=== PATIENT | male | born 1950 | race Caucasian/White ===

== ENCOUNTER → 2017-09-15 | Outpatient (CLI) | payer OTHER | LOC: FIMAGING 07:51 | PROVIDERS: ATTEND Nurse Practitioner | DX: N13.30 Unspecified hydronephrosis (principal); B19.20 Unspecified viral hepatitis C without hepatic coma ==

== ENCOUNTER → 2017-11-20 | Outpatient (CLI) | payer OTHER, MEDICAID ==
[~2017-11-20] MED LIST: IOPAMIDOL (ISOVUE-300) 150 ML BTL ONE
== END ==
LOC: FIMAGING 07:32
PROVIDERS: ATTEND Nurse Practitioner
DX: N13.2 Hydronephrosis with renal and ureteral calculous obstruction (principal); N20.0 Calculus of kidney; K74.60 Unspecified cirrhosis of liver; K76.89 Other specified diseases of liver
CPT/HCPCS: 74178; Q9967; 82565-PO

== ENCOUNTER 2018-02-15 05:27 | Inpatient (IN) | payer OTHER, MEDICAID ==
--- NOTE | 2018-02-14 15:59 | GHP ---
DATE OF ADMISSION: 02/15/2018 ADMITTING DIAGNOSIS: Right large ureteral calculus. HISTORY OF PRESENT ILLNESS: This is a 68-year-old gentleman who has had a large right ureteral calcu kareem noted on CAT scan with hydronephrosis, and the stone is 2.2 cm in longitudinal length. At the pr esent time, we discussed the various options of therapy and recommended that he undergo robotic urete rolithotomy, and indications, complications, and risks were discussed. PAST MEDICAL HISTORY: He has had ureterolithiasis, hepatitis C, emphysema, alcoholism. PAST SURGICAL HISTORY: No surgeries identified. MEDICATIONS: Atrovent, ProAir. ALLERGIES: None. FAMILY HISTORY: Positive for kidney stones. SOCIAL HISTORY: Rare alcohol consumption. Currently smokes daily. REVIEW OF SYSTEMS: Negative cardiac, respiratory, GI, and endocrine. PHYSICAL EXAMINATION: VITAL SIGNS: Stable. CHEST: Clear. HEART: Regular rate and rhythm. ABDOM EN: Normal. No organomegaly, rebound, or guarding. LOWER EXTREMITIES: Normal. ASSESSMENT AND PLAN: At the present time, he is admitted for the right robotic-assisted ureterolitho steven. We have asked that he have a cardiac clearance, and, by Dr. aPtel as of 12/22/2017, it says h enoc has no cardiac contraindication proceeding with necessary noncardiac surgery. So plans are a right -sided ureterolithotomy, robotically assisted. /[id number]/MODL
[2018-02-15] MEDS ORDERED: ceFAZolin 2 GM/DEXTROSE 100 ML IV ONE (05:41)
[2018-02-15] MEDS ORDERED: LR 1,000 ML IV ONE (05:42)
[2018-02-15] MEDS ORDERED: BUPIVACAINE 0.5% 30 ML SDV ONE (06:44)
[2018-02-15] MEDS ORDERED: THROMBIN (BOVINE) 5,000 UNIT VIAL TP ONE (06:44)
[2018-02-15] MEDS ORDERED: SURGIFLO MATRIX KIT WITH THROMBIN 8 ML TP ONE (06:44)
--- NOTE | 2018-02-15 07:07 | PDHPUP ---
History & Physical Update H&P update statement: This history and physical update is based on an assessment of the patient which was completed after admission or registration (within 24 hours), but prior to the surgery/procedure. H&P update: H&P reviewed & patient examined, no change in patient's condition since H&P completed
[2018-02-15] MEDS ORDERED: MIDAZOLAM 2 MG/2 ML VIAL IVP ONE (07:11)
--- NOTE | 2018-02-15 07:11 | PDANEPAE ---
ANE Past Medical History - Cardiovascular History Hx Hypertension: Yes Hx Arrhythmias: No Hx Chest Pain: No Hx Coronary Artery / Peripheral Vascular Disease: Yes Hx CHF / Valvular Disease: No Hx Palpitations: No Cardiovascular History Comment: borderline HTN - no current tx per cardiology - Pulmonary History Hx COPD: Yes Hx Asthma/Reactive Airway Disease: No Hx Recent Upper Respiratory Infection: No Hx Oxygen in Use at Home: No Hx Sleep Apnea: No Sleep Apnea Screening Result - Last Documented: Negative Pulmonary History Comment: emphysema - Neurologic History Hx Cerebrovascular Accident: No Hx Seizures: No Hx Dementia: No - Endocrine History Hx Diabetes: No - Renal History Hx Renal Disorders: Yes Renal History Comment: renal stones - Liver History Hx Hepatic Disorders: Yes Hepatic History Comment: hepatitis C, cirrhosis - Neurological & Psychiatric Hx Hx Neurological and Psychiatric Disorders: No - Cancer History Hx Cancer: No Cancer History Comment: has had spots on lungs in the past but no diagnosis - Congenital Disorder History Hx Congenital Disorders: No - GI History Hx Gastrointestinal Disorders: No - Other Health History Other Health History: partial, top. hx of alcoholism, sobor since 2013 - Chronic Pain History Chronic Pain: No - Surgical History Prior Surgeries: none ANE Review of Systems Review of Systems: - Exercise capacity METS (RN): 4 METS ANE Patient History - Allergies Allergies/Adverse Reactions: No Known Allergies Allergy (Unverified 01/25/18 10:31) - Home Medications Home Medications: Albuterol [Proventil Inhaler HFA (*)] 1 - 2 puffs IH DAILY PRN 01/25/18 [Last Taken Unknown] Herbals/Supplements -Info Only 1 ea PO DAILY 01/25/18 [Last Taken 02/08/18] Ipratropium [Atrovent Hfa (*)] 2 puffs IH BID 01/25/18 [Last Taken 02/15/18 03: 30] Multivitamins [Multivitamin (*)] 1 each PO DAILY 01/25/18 [Last Taken 02/08/18] - NPO status NPO Since - Liquids (Date): 02/14/18 NPO Since - Liquids (Time): 22:00 NPO Since - Solids (Date): 02/14/18 NPO Since - Solids (Time): 22:00 - Smoking Hx Smoking Status: Current every day smoker - Family Anes Hx Family Hx Anesthesia Complications: none ANE Labs/Vital Signs - Vital Signs Blood Pressure: 157/75 Heart Rate: 56 Respiratory Rate: 16 O2 Sat (%): 95 Height: 172.72 cm Weight: 60.781 kg ANE Physical Exam - Airway Neck exam: FROM Mallampati Score: Class 1 Mouth exam: dentures - Pulmonary Pulmonary: no respiratory distress - Cardiovascular Cardiovascular: regular rate and rhythym - ASA Status ASA Status: III ANE Anesthesia Plan Anesthesia Plan: general endotracheal anesthesia
[2018-02-15] MEDS ORDERED: MIDAZOLAM 2 MG/2 ML VIAL ONE (07:12)
[2018-02-15] MEDS ORDERED: PROPOFOL 200 MG/20 ML VIAL ONE (07:16)
[2018-02-15] MEDS ORDERED: DEXAMETHASONE 4 MG/ML VIAL ONE (07:16)
[2018-02-15] MEDS ORDERED: ONDANSETRON 4 MG/2 ML VIAL ONE (07:16)
[2018-02-15] MEDS ORDERED: ROCURONIUM 100 MG/10 ML VIAL ONE (07:16)
[2018-02-15] MEDS ORDERED: fentaNYL 250 MCG/5 ML INJ ONE (07:16)
[2018-02-15] MEDS ORDERED: RANITIDINE 50 MG/2 ML VIAL ONE (07:16)
[2018-02-15] MEDS ORDERED: KETOROLAC 30 MG/1 ML SDV ONE (07:16)
[2018-02-15] MEDS ORDERED: SUGAMMADEX SODIUM 200 MG/2 ML VIAL IVP ONE (07:16)
[2018-02-15] MEDS ORDERED: LIDOCAINE 2% 100 MG/5 ML SYR ONE (07:16)
[2018-02-15] MEDS ORDERED: PHENYLEPHRINE HCL 100 MCG/ML SYR ONE (09:03)
[2018-02-15] MEDS ORDERED: ONDANSETRON DISINTEGRATING 4 MG TAB PO PRN (09:26)
[2018-02-15] MEDS ORDERED: HYDROmorphONE/DILAUDID 6 MG/30 ML PCA IV PRN (09:26)
[2018-02-15] MEDS ORDERED: NALOXONE HCL 0.4 MG/ML INJ IVP PRN (09:26)
--- NOTE | 2018-02-15 09:32 | POSTOPPROG ---
Post Op Note Date of Operation: 02/15/18 (dictated) Surgeon: Cipriano Santillan Asbestos Siding Installer: Milton Anesthesiologist: Gualberto Anesthesia: GET(General Endotracheal) Pre-op Diagnosis: rt ureterolithiasis Procedure: RA ureterolithotomy / stent Inf/Abcess present in the surg proc area at time of surgery?: No EBL: Minimal Drains: Prem Chaney, Other (ureteral stent) Specimen(s): stone
[2018-02-15] MEDS ORDERED: MEPERIDINE 25 MG/0.5 ML AMP IVP PRN (09:34)
[2018-02-15] MEDS ORDERED: PROMETHAZINE HCL 25 MG/ML INJ IVP PRN (09:34)
[2018-02-15] MEDS ORDERED: DIAZEPAM 5 MG/ML 1 ML SYR IVP PRN (09:34)
[2018-02-15] MEDS ORDERED: fentaNYL 100 MCG/2 ML INJ IVP PRN (09:34)
[2018-02-15] MEDS ORDERED: LR 500 ML IV PRN (09:34)
[2018-02-15] MEDS ORDERED: ALBUTEROL 3 ML DEYVIAL IH PRN (09:34)
--- NOTE | 2018-02-15 09:42 | GOP ---
DATE OF OPERATION: 02/15/2018 SURGEON: Cipriano Santillan MD EVENTS AND PROMOTIONS ASSISTANT: Katiana Rose CFA PREOPERATIVE DIAGNOSIS: Right proximal ureteral calculus with obstruction. POSTOPERATIVE DIAGNOSIS: Right proximal ureteral calculus with obstruction. PROCEDURE PERFORMED: Robotic-assisted ureteral lithotomy and stent placement. FINDINGS: SPECIMENS: Stone. ESTIMATED BLOOD LOSS: Less than 10 mL. DESCRIPTION OF PROCEDURE: After undergoing general anesthesia, being prepped and draped in normal st erile fashion in the left lateral decubitus position, appropriate time-out, appropriate identificatio n of the stone and review of the CAT scan intraoperatively, a Veress needle was placed supraumbilical ly and inflated to 15 mmHg pressure CO2 was utilized. Then at that point, the 12 camera port was wilfredo delma supraumbilically under direct vision and then two 8 mm robot arm ports, and a 12 mm email marketing assistant por t were placed. Then with appropriate instrumentation, the right colon was taken down. Hemostasis vi a bipolar electrocautery. We then identified the ureter and dissected it out. The gonadal vessel cr ossed anterior to the ureter, and above that crossing vessel, I could identify the stone in the urete r and that was dissected up to just above the level of the inferior pole of the kidney. Ureterotomy was made. The stone delivered out. A stent, 4.7 multi-length was placed and it felt like it curled in the bladder and it curled in the kidney. Then the ureter ureterotomy was approximated with 4-0 Vi cryl suture. It appeared to be water tight. Reperitonealized the colon after placing a drain. Then the 12 mm ports were closed with a fascial sutures with the closure device and 0 Vicryl. The skin w as approximated with 4-0 Monocryl and a local field injection was placed. COMPLICATIONS: None. DISPOSITION: He will be admitted for postoperative care. /[id number]/MODL
[2018-02-15] MEDS: D5W 1/2 NS 1,000 ML IV SCH ×2 (11:17→21:14)
[2018-02-15] MEDS: oxyCODONE IR 5 MG TAB PO PRN ×2 (11:53→23:15)
[2018-02-15] MEDS: ONDANSETRON 4 MG/2 ML VIAL IVP PRN (13:08)
--- NOTE | 2018-02-15 15:06 | POSTANESTH ---
Post Anesthetic Evaluation Cardiovascular Status: Normal, Stable Respiratory Status: Normal, Stable Level of Consciousness/Mental Status: Can Participate in Eval Pain Control: Adequate, Prn Tx Ordered Nausea/Vomiting Control: Adequate, Prn Tx Ordered Complications Possibly Related to Anesthesia: None Noted
--- NOTE | 2018-02-16 15:12 | ASMTCMCOM ---
CM Note CM Note Notes: Pt is a 68 y/o male who has a large right ureteral calculus noted on CAT scan with hydronephrosis. Today he had a ureterolithomy right. Pt has no identified CM needs; CM will follow for changes. D/C Plan: Anticipate independent. Date Signed: 02/16/2018 03:10 PM Electronically Signed By:Yenny Samuels
--- NOTE | 2018-02-16 16:15 | SOAPPROG ---
SOAP Progress Note Assessment/Plan: Assessment: post robotic ureterolithiasis Plan: Patient has fatigue and not ready for discharge. Some abdominal discharge and recommend he ambulate. Discussed with RN. 02/16/18 16:13 Subjective: fatigue and pain Objective: Vital Signs Temp Pulse Resp BP Pulse Ox 37.4 C 66 14 163/84 H 90 L 02/16/18 15:02 02/16/18 15:02 02/16/18 15:02 02/16/18 15:02 02/16/18 15:02 02/15/18 02/16/18 02/17/18 05:59 05:59 05:59 Intake Total 15694 Output Total 2188 160 Balance 31886 -160 Physical Exam - Physical Exam General Appearance: alert, no apparent distress Respiratory: normal breath sounds Cardiac/Chest: regular rate, rhythm Abdomen: distended (umair draining moderately bloody fluid) ICD10 Worksheet Patient Problems: Problems Problem Status Onset Ureterolithiasis Acute - ICD10 Problem Qualifiers (1) Ureterolithiasis
--- NOTE | 2018-02-16 16:37 | PDMN ---
Medical Necessity Medical necessity: Change to IP, as of 02/16/18, per PA; los >2 mn s/p ureterolithiasis POD#1; pt having fatigue, pain & some abdominal discharge; requiring further monitoring & pain management
[2018-02-16] MEDS: D5W 1/2 NS 1,000 ML IV SCH (16:48)
[2018-02-16] MEDS: ONDANSETRON 4 MG/2 ML VIAL IVP PRN (19:45)
[2018-02-16] MEDS: oxyCODONE IR 5 MG TAB PO PRN (19:51)
[2018-02-16] MEDS: ZOLPIDEM TARTRATE 5 MG TAB PO PRN (21:43)
[2018-02-16] MEDS: ACETAMINOPHEN 325 MG TAB PO PRN (21:44)
[2018-02-17] MEDS: oxyCODONE IR 5 MG TAB PO PRN ×5 (02:40→21:13)
--- NOTE | 2018-02-17 08:12 | SOAPPROG ---
SOAP Progress Note Assessment/Plan: Assessment: Ureterolithiasis Acute POD # 2, assess labs and consider DC today , labs ok Plan: as noted 02/17/18 09:32 Subjective: constipated, and pain meds seem appropriate, pt refuses to ambulate even after discussion of risks of not ambulating Objective: Vital Signs Temp Pulse Resp BP Pulse Ox 37.1 C 72 15 140/80 H 95 02/17/18 08:00 02/17/18 08:00 02/17/18 08:00 02/17/18 08:00 02/17/18 08:00 02/16/18 02/17/18 02/18/18 05:59 05:59 05:59 Intake Total 73557 775 Output Total 218 3090 Balance 91444 -2310 Physical Exam - Physical Exam General Appearance: alert EENT: other (pin point pupils from narcotics) Respiratory: No respiratory distress Cardiac/Chest: regular rate, rhythm Abdomen: soft, distended, No hernia Extremities: No calf tenderness, No Ryan's sign Neuro/Psych: alert, oriented x 3, other (a bit too much narcotic) ICD10 Worksheet Patient Problems: Problems Problem Status Onset Ureterolithiasis Acute
[2018-02-17] MEDS ORDERED: SENNOSIDES/DOCUSATE SODIUM TAB PO PRN (08:14)
[2018-02-17 08:34] LABS: PLATELET COUNT 123 10^3/uL (150-400)
[2018-02-17] MEDS: ACETAMINOPHEN 325 MG TAB PO PRN (22:59)
[2018-02-18] MEDS: oxyCODONE IR 5 MG TAB PO PRN (02:25)
[2018-02-18] MEDS: ACETAMINOPHEN 325 MG TAB PO PRN ×2 (09:04→22:08)
--- NOTE | 2018-02-18 09:11 | SOAPPROG ---
SOAP Progress Note Assessment/Plan: Assessment: Ureterolithiasis Acute POD # 3, assess labs and DC today, yet patient is reluctant to go due to no ride, consider SNF Plan: as noted 02/18/18 09:34 Subjective: improving yet not having a ride for DC Objective: Vital Signs Temp Pulse Resp BP Pulse Ox 37.1 C 61 18 130/65 H 92 02/18/18 04:27 02/18/18 04:27 02/18/18 04:27 02/18/18 04:27 02/18/18 04:27 Laboratory Results 02/17/18 08:02 02/17/18 08:02 02/17/18 02/18/18 02/19/18 05:59 05:59 05:59 Intake Total 775 2611 Output Total 3090 1470 Balance -2315 1141 Physical Exam - Physical Exam General Appearance: alert Neck: full range of motion Respiratory: No respiratory distress Cardiac/Chest: regular rate, rhythm Abdomen: soft Back: No CVA tenderness Skin: warm/dry Extremities: No calf tenderness, No Ryan's sign Neuro/Psych: alert, oriented x 3 ICD10 Worksheet Patient Problems: Problems Problem Status Onset Ureterolithiasis Acute
[2018-02-19] MEDS: ZOLPIDEM TARTRATE 5 MG TAB PO PRN (01:09)
[2018-02-19 08:32] VITALS: BP 131/65
--- NOTE | 2018-02-19 08:33 | ASMTLACE ---
ADARSH Length of stay for Answers: 4-6 days current admission Acuity / Level of Answers: Yes Care: Did the patient have an inpatient admission? Comorbidities - select Answers: Chronic pulmonary disease all that apply Coronary Artery Disease Other Notes: HTN; Hep C # of Emergency department Answers: 0 visits in the last 6 months Social determinants Answers: History of substance abuse (ETOH, street drugs, prescription drugs, etc.) Score: 15 Date Signed: 02/19/2018 08:33 AM Electronically Signed By:Elaina Fowler
--- NOTE | 2018-02-19 10:23 | ASDISCHSUM ---
Discharge Information Plan Status:Home with No Needs Medically Cleared to Leave: Discharge Date: CM D/C Disposition:Home, Routine, Self-Care ADT D/C Disposition:Home, Routine, Self-Care Projected Discharge Date: Transportation at D/C: Discharge Delay Reason: Follow-Up Date: Discharge Slot: Final Diagnosis: Placement Information Patient Contact Information Contact Name:MURTAZA Relationship:Sister Address: Work Phone: City: [facility] Phone: State/Zip Code: Email: Financial Information Financial Class:Medicare Primary Plan Desc:MEDICARE INPATIENT Primary Plan Number:[id number] Secondary Plan Desc:[place] Secondary Plan Number:[id number] Assessment Information LACE LACE Length of stay for Answers: 4-6 days current admission Acuity / Level of Answers: Yes Care: Did the patient have an inpatient admission? Comorbidities - select Answers: Chronic pulmonary disease all that apply Coronary Artery Disease Other Notes: HTN; Hep C # of Emergency department Answers: 0 visits in the last 6 months Social determinants Answers: History of substance abuse (ETOH, street drugs, prescription drugs, etc.) Score: 15 Date Signed: 02/19/2018 08:33 AM Electronically Signed By:Elaina Fowler [facility] CM Progress Note CM Note CM Note Notes: Pt is a 68 y/o male who has a large right ureteral calculus noted on CAT scan with hydronephrosis. Today he had a ureterolithomy right. Pt has no identified CM needs; CM will follow for changes. D/C Plan: Anticipate independent. Date Signed: 02/16/2018 03:10 PM Electronically Signed By:Yenny Samuels LACE LACE Length of stay for Answers: 2 days current admission Acuity / Level of Answers: Yes Care: Did the patient have an inpatient admission? Comorbidities - select Answers: Chronic pulmonary disease all that apply Coronary Artery Disease Other Notes: HTN; Hep C # of Emergency department Answers: 0 visits in the last 6 months Social determinants Answers: History of substance abuse (ETOH, street drugs, prescription drugs, etc.) Score: 13 Date Signed: 02/19/2018 10:22 AM Electronically Signed By:Yenny Samuels Intervention Information Intervention Type:*OLSON-Signed Date of Service:02/16/2018 11:52 AM Patient Type:Observation Staff Member:Felipe Zapien Hours: Discipline: Severity: Comment: Intervention Type:*IM-Signed Date of Service:02/19/2018 10:09 AM Patient Type:Inpatient Staff Member:Elaina Fowler Hours: Discipline: Severity: Comment:
== END 2018-02-19 12:54 | disposition home or self-care (01) | DRG 661 ==
LOC: F1N 05:27 → OBSVTOIN 02-16 16:26
PROVIDERS: ADMIT Specialist; ATTEND Specialist
DX: N20.1 Calculus of ureter (principal); B19.20 Unspecified viral hepatitis C without hepatic coma; J43.9 Emphysema, unspecified; K59.00 Constipation, unspecified; I10 Essential (primary) hypertension; F10.21 Alcohol dependence, in remission; Z72.0 Tobacco use
CPT/HCPCS: 82365-90; C2625; J0690; J1100; J1170; J1885; J2001; J2250; J2370; J2405; J2704; J2780; J3010

== ENCOUNTER → 2018-05-03 | Outpatient (CLI) | payer OTHER, MEDICAID ==
[~2018-05-03] MED LIST changes: +FUROSEMIDE 40 MG/4 ML VIAL ONE; -IOPAMIDOL (ISOVUE-300) 150 ML BTL ONE
== END ==
LOC: FIMAGING 10:09
PROVIDERS: ATTEND Physician Assistant Medical
DX: N13.30 Unspecified hydronephrosis (principal)
CPT/HCPCS: 78708; A9562; J1940

== ENCOUNTER → 2018-07-03 | Outpatient (CLI) | payer OTHER, MEDICAID | LOC: FIMAGING 10:30 | PROVIDERS: ATTEND Nurse Practitioner | DX: R16.0 Hepatomegaly, not elsewhere classified (principal); K80.20 Calculus of gallbladder without cholecystitis without obstruction; N20.0 Calculus of kidney ==